=== PATIENT | female | born 2000 | race Caucasian/White ===

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

== ENCOUNTER 2021-07-19 14:03 | Emergency (ER) | payer OTHER ==
[~2021-07-19 14:03] MED LIST: LODINE CAP 300300 MG PO; VENTOLIN HFA 66.7 GM INH; ZOFRAN ODT 4 MG4 MG PO
[2021-07-19] MEDS ORDERED: BENZONATATE100 MG PO (15:54)
== END 2021-07-19 15:57 | disposition home or self-care (01) ==
LOC: ER1 14:03
DX: U07.1 COVID-19 (principal)
CPT/HCPCS: 87081; 87880; 99283; U0002